=== PATIENT | male | born 2000 | race Two or more races ===

== ENCOUNTER → 2024-07-14 | Outpatient (CLI) | payer OTHER ==
[~2024-07-14] VITALS: Ht 177.8 cm; Wt 72.6 kg
== END | disposition home or self-care (01) ==
LOC: Rad HDHVI 10:10
PROVIDERS: ATTEND Internal Medicine Cardiovascular Disease
DX: R55 Syncope and collapse (principal); R07.89 Other chest pain; R00.1 Bradycardia, unspecified; I10 Essential (primary) hypertension; R53.83 Other fatigue
CPT/HCPCS: 93017; 93306

== ENCOUNTER → 2024-08-16 | Outpatient (CLI) | payer OTHER ==
[~2024-08-16] MED LIST: POM PO
[2024-08-16 13:07] VITALS: BP 129/72; PULSE 78; RESP 16; O2SAT 98
--- NOTE | 2024-08-16 13:29 | DVH ---
Procedure: XY CHEST TWO VIEWS ROUTINE 08/16/2024 02:55 PM Indication: PRE OP Comparison: None TECHNIQUE: XY CHEST TWO VIEWS ROUTINE FINDINGS: Medical devices: None. Cardiomediastinal: The heart is normal in size. Pulmonary vasculature is within normal limits. Lungs: No focal pulmonary opacity is seen. The costophrenic angles are clear. No pneumothorax. Bones/soft tissues: No acute abnormality is noted. IMPRESSION: 1. No acute cardiopulmonary disease.
== END | disposition home or self-care (01) ==
LOC: Rad HDHVI 13:02
PROVIDERS: ATTEND Internal Medicine Cardiovascular Disease
DX: Z01.818 Encounter for other preprocedural examination (principal)
CPT/HCPCS: 71046; G0463

== ENCOUNTER 2024-08-18 06:32 | Inpatient (IN) | payer OTHER ==
[~2024-08-18] VITALS: Ht 177.8 cm; Wt 72.0 kg
[2024-08-18] VITALS (8 sets, daily range): BP systolic 105–141; BP diastolic 58–72; PULSE 45–71; RESP 15–18; TEMP 97.6–99; O2SAT 96–99
[2024-08-18] MEDS: LORazepam 0.5 MG TAB PO ONE ×2 (08:03→09:15)
[2024-08-18] MEDS: LORazepam 0.5 MG TAB ONE (09:16)
[2024-08-18 09:48] LABS: Basophils # (auto) 0.1 10 ^3/uL (0-0.2); Basophils % (auto) 0.7 % (0.0-2.0); Eosinophils # (auto) 0.1 10 ^3/uL (0-0.8); Eosinophils % (auto) 1.3 % (0.0-7.0); Hematocrit 46.9 % (41.0-53.0); Hemoglobin 16.2 g/dL (13.5-17.5); Lymphocytes # (auto) 2.2 10 ^3/uL (0.4-5.4); Lymphocytes % (auto) 28.3 % (10.0-50.0); Mean Corpuscular Hemoglobin 29.2 pg (28.0-32.0); Mean Corpuscular Hgb Conc. 34.6 g/dL (32.0-36.0); Mean Corpuscular Volume 84.4 fL (80.0-100.0); Monocytes # (auto) 0.7 10 ^3/uL (0-1.3); Monocytes % (auto) 8.9 % (0.0-12.0); Neutrophils # (auto) 4.7 10 ^3/uL (1.6-8.6); Neutrophils % (auto) 60.8 % (37.0-80.0); Nucleated Red Blood Cells % 0.3 %; Platelet Count (auto) 330 10^3/uL (140-450); Red Blood Cells 5.56 10^6/uL (4.5-5.90); Red Cell Distribution Width 12.6 % (11.8-14.3); White Blood Cell 7.7 10^3/uL (4.4-10.8)
[2024-08-18 09:56] LABS: Chloride 103 mmol/L (98-107); Potassium 3.8 mmol/L (3.5-5.1); Sodium 139 mmol/L (136-145)
[2024-08-18 09:57] LABS: Anion Gap 7 (5-15); Carbon Dioxide 29 mmol/L (20-31)
[2024-08-18 10:02] LABS: BUN/Creatinine Ratio 10.6 (10.0-20.0); Blood Urea Nitrogen 11 mg/dL (9-23); Glucose 97 mg/dL (74-106)
[2024-08-18 10:06] LABS: Calcium 10.6 mg/dL (8.7-10.4)
[2024-08-18 10:22] LABS: INR 1.09 (0.9-1.15); Partial Thromboplastin Time 28.3 SEC (24.5-34.5); Prothrombin Time 11.5 sec (9.3-11.8)
[2024-08-18] MEDS ORDERED: MORPHINE SULFATE INJ 2 MG/ml SYRG IV PRN (12:00)
[2024-08-18] MEDS ORDERED: NITROGLYCERIN 0.4 MG SL TAB SL PRN (12:00)
--- NOTE | 2024-08-18 14:42 | DVHHP2 ---
Review of Systems Allergies: Coded Allergies: NO KNOWN ALLERGIES (Unverified , 08/16/24) Medications Current Medications Medications Dose Ordered Sig/Mikayla Route Start Time Stop Time Status Last Admin Dose Admin Nitroglycerin 0.4 mg Q5MINP PRN SL 08/18/24 12:00 Morphine Sulfate 2 mg Q30M PRN IV 08/18/24 12:00 Sodium Chloride 10 ml Q8HR IV 08/18/24 14:00 Labs/Xrays Labs Test 08/18/24 09:35 Range/Units White Blood Count 7.7 4.4-10.8 10^3/uL Red Blood Count 5.56 4.5-5.90 10^6/uL Hemoglobin 16.2 13.5-17.5 g/dL Hematocrit 46.9 41.0-53.0 % Mean Corpuscular Volume 84.4 80.0-100.0 fL Mean Corpuscular Hemoglobin 29.2 28.0-32.0 pg Mean Corpuscular Hemoglobin Concent 34.6 32.0-36.0 g/dL Red Cell Distribution Width 12.6 11.8-14.3 % Platelet Count 330 140-450 10^3/uL Mean Platelet Volume 7.0 6.9-10.8 fL Neutrophils (%) (Auto) 60.8 37.0-80.0 % Lymphocytes (%) (Auto) 28.3 10.0-50.0 % Monocytes (%) (Auto) 8.9 0.0-12.0 % Eosinophils (%) (Auto) 1.3 0.0-7.0 % Basophils (%) (Auto) 0.7 0.0-2.0 % Neutrophils # (Auto) 4.7 1.6-8.6 10 ^3/uL Lymphocytes # (Auto) 2.2 0.4-5.4 10 ^3/uL Monocytes # (Auto) 0.7 0-1.3 10 ^3/uL Eosinophils # (Auto) 0.1 0-0.8 10 ^3/uL Basophils # (Auto) 0.1 0-0.2 10 ^3/uL Nucleated Red Blood Cells 0.3 % Prothrombin Time 11.5 9.3-11.8 sec Prothrombin Time INR 1.09 0.9-1.15 Activated Partial Thromboplast Time 28.3 24.5-34.5 SEC Sodium Level 139 136-145 mmol/L Potassium Level 3.8 3.5-5.1 mmol/L Chloride Level 103 98-107 mmol/L Carbon Dioxide Level 29 20-31 mmol/L Anion Gap 7 5-15 Blood Urea Nitrogen 11 9-23 mg/dL Creatinine 1.04 0.700-1.30 mg/dL Glomerular Filtration Rate Calc 103 >90 mL/min BUN/Creatinine Ratio 10.6 10.0-20.0 Serum Glucose 97 74-106 mg/dL Calcium Level 10.6 H 8.7-10.4 mg/dL Assessment/Plan Assessment/Plan see dictated note Plan discussed with: Patient Date of Service: Aug 18, 2024 Billing Provider: RIANA ROMERO MD Common Visit Codes: [id number] INP/OBS CARE (HIGH) Secondary Visit Codes: [id number] CARE PLAN 30 MINUTES RIANA ROMERO MD Aug 18, 2024 14:42
--- NOTE | 2024-08-18 15:12 | DVHHP ---
HISTORY OF PRESENT ILLNESS: The patient is a 23-year-old gentleman who was admitted because of bradycardia and episodes of syncope. The patient denies any chest pain, no shortness of breath. No nausea or vomiting. REVIEW OF SYSTEMS: Review of rest of systems are otherwise currently negative. PAST MEDICAL HISTORY: No significant illness in the past. MEDICATIONS: He takes no medicine on a regular basis. ALLERGIES: No known drug allergies. SOCIAL HISTORY: Chews tobacco. Denies alcohol intake. FAMILY HISTORY: Negative. PHYSICAL EXAMINATION: GENERAL: The patient is awake, alert. VITAL SIGNS: Temperature of 98.6, pulse 58 per minute. SHEENT: Unremarkable. NECK: There is no JVD, no pedal edema. LUNGS: Equal bilaterally. No added sounds. CARDIOVASCULAR: S1, S2 is regular. There is bradycardia. ABDOMEN: Soft. There is no organomegaly. NEUROLOGIC: Nonfocal. MUSCULOSKELETAL: Normal. ASSESSMENT AND PLAN: * Bradyarrhythmia with a questionable sick sinus. The patient is to undergo dual chamber pacemaker placement by Dr. Klein in a.m. * Nicotine abuse. Advance care planning, the patient is a full code. Time spent was 19 minutes. MD MARC Schwartz/NORA TID: [id number] RECEIPT: [id number]
[2024-08-18] MEDS: SODIUM CHLOR 0.9% PF (SALINE LOCK) 10ML VIAL/SYR IV SCH (16:02)
[2024-08-19] VITALS (11 sets, daily range): BP systolic 88–117; BP diastolic 57–77; PULSE 44–77; RESP 11–20; TEMP 97–99.3; O2SAT 90–100
[2024-08-19] MEDS: VANCOMYCIN HCL 1000 MG VL ONE (08:25)
[2024-08-19] MEDS: fentaNYL CITRATE 100 MCG/2 ML VL ONE (08:25)
[2024-08-19] MEDS: MIDAZOLAM HCL 2MG/2ML 2ml VIAL (1mg/ml) ONE ×2 (08:25→08:52)
[2024-08-19] MEDS: VANCOMYCIN 1GM/250ML KIT 250 ML IV ONE (08:26)
[2024-08-19] MEDS: LIDOCAINE 2%HCL (LOCAL ANESTH.) INJ 20ML MDV ONE (08:26)
[2024-08-19] MEDS: HYDROmorphone HCL 2 MG/ML VL/or syr ONE (08:45)
[2024-08-19] MEDS: IODIXANOL 320MG/ML 100ML BTL IV ONE (08:46)
[2024-08-19] MEDS ORDERED: ceFAZolin 1GM/50ML 50 ML IV SCH (10:00)
--- NOTE | 2024-08-19 10:36 | DVH ---
EXAM: XY CHEST PORTABLE Indication: S/P PACEMAKER Technique: Single frontal view of the chest was obtained Comparison: None FINDINGS: Lines and Tubes: Cardiac pacemaker projects over left chest wall. Lungs: No focal consolidation. Pleura: No effusion. No pneumothorax. Cardiomediastinal contours: Unremarkable Bones: No acute osseous abnormality. IMPRESSION: No acute cardiopulmonary disease.
--- NOTE | 2024-08-19 14:13 | DVHDS2 ---
Discharge Summary Date of Admission Aug 18, 2024 at 12:00 Date of Discharge: Aug 19, 2024 Admitting Diagnosis SINUS ARREST Wounds: PPI SITE Labs/Diagnostic Data: Laboratory Results Test 08/18/24 09:35 White Blood Count 7.7 10^3/uL (4.4-10.8) Red Blood Count 5.56 10^6/uL (4.5-5.90) Hemoglobin 16.2 g/dL (13.5-17.5) Hematocrit 46.9 % (41.0-53.0) Mean Corpuscular Volume 84.4 fL (80.0-100.0) Mean Corpuscular Hemoglobin 29.2 pg (28.0-32.0) Mean Corpuscular Hemoglobin Concent 34.6 g/dL (32.0-36.0) Red Cell Distribution Width 12.6 % (11.8-14.3) Platelet Count 330 10^3/uL (140-450) Mean Platelet Volume 7.0 fL (6.9-10.8) Neutrophils (%) (Auto) 60.8 % (37.0-80.0) Lymphocytes (%) (Auto) 28.3 % (10.0-50.0) Monocytes (%) (Auto) 8.9 % (0.0-12.0) Eosinophils (%) (Auto) 1.3 % (0.0-7.0) Basophils (%) (Auto) 0.7 % (0.0-2.0) Neutrophils # (Auto) 4.7 10 ^3/uL (1.6-8.6) Lymphocytes # (Auto) 2.2 10 ^3/uL (0.4-5.4) Monocytes # (Auto) 0.7 10 ^3/uL (0-1.3) Eosinophils # (Auto) 0.1 10 ^3/uL (0-0.8) Basophils # (Auto) 0.1 10 ^3/uL (0-0.2) Nucleated Red Blood Cells 0.3 % Prothrombin Time 11.5 sec (9.3-11.8) Prothrombin Time INR 1.09 (0.9-1.15) Activated Partial Thromboplast Time 28.3 SEC (24.5-34.5) Sodium Level 139 mmol/L (136-145) Potassium Level 3.8 mmol/L (3.5-5.1) Chloride Level 103 mmol/L (98-107) Carbon Dioxide Level 29 mmol/L (20-31) Anion Gap 7 (5-15) Blood Urea Nitrogen 11 mg/dL (9-23) Creatinine 1.04 mg/dL (0.700-1.30) Glomerular Filtration Rate Calc 103 mL/min (>90) BUN/Creatinine Ratio 10.6 (10.0-20.0) Serum Glucose 97 mg/dL (74-106) Calcium Level 10.6 mg/dL (8.7-10.4) Other Laboratory Tests 08/18/24 09:35 Brief Hx & Hospital Course: PT HAD SINUS ARREST 11 SEC PAUSES WITH SYNCOPE PPI DELAYED BECAUSE OF WICKER MOLDED CANDLES ISSUES S/P PPI DUAL THIS MORNING NO COMPLICATIONS MAY DC HOME Operations or Procedures PPI IMPLANTATION Condition at Discharge: Good Final Diagnosis/Problems List SINUS NODE ARREST Discharge Disposition: Home Discharge Instruct/Medications Diet: Regular Activity: Light activity Follow Up/Referral: 1 WEEK Medications: KEPLEX 500 PO QID X7 DAYS Discharge Statement: "Patient was advised to return to the ER or call 911 if any headaches, dizziness, shortness of breath, chest pain, abdominal pain, bleeding, fevers, or worsening of medical condition. Patient was counseled about treatment plan, medications, possible side effects, patientverbalized understanding. All questions were answered to the best of my ability. This discharge took greater then 30 minutes in planning, reviewing documentation, counseling the patient, and discussing with other team members." ASSESSMENT ASSESSMENT Assessment SINUS NODE ARREST DEBORAH YOUNG MD Aug 19, 2024 14:12
--- NOTE | 2024-08-19 14:16 | DVHPN2 ---
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 [employer] K9 UNIT vital signs Vital Sign Date Time Temp Pulse Resp B/P (MAP) Pulse Ox O2 Delivery O2 Flow Rate FiO2 08/19/24 13:00 99.3 69 20 111/64 (80) 99 99.3 08/19/24 08:00 Room Air* 0 21 Total Intake and Output 08/18/24 08/18/24 08/19/24 15:00 23:00 07:00 Intake Total 200 ml 600 ml Balance 200 ml 600 ml medications Current Medications Medications Dose Ordered Sig/Mikayla Route Start Time Stop Time Status Last Admin Dose Admin Nitroglycerin 0.4 mg Q5MINP PRN SL 08/18/24 12:00 Morphine Sulfate 2 mg Q30M PRN IV 08/18/24 12:00 Sodium Chloride 10 ml Q8HR IV 08/18/24 14:00 08/19/24 05:20 10 ML Cefazolin Sodium 50 ml @ 50 mls/hr Q8H IV 08/19/24 12:00 08/20/24 04:59 objective NON FOCAL EXAMINATION laboratory and microbiology Laboratory Tests 08/18/24 09:35 Test 08/18/24 09:35 Range/Units Serum Glucose 97 74-106 mg/dL Problem List SINUS ARREST SYNCOPE Assessment/Plan 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
[2024-08-19 14:51] LABS: Alanine Aminotransferase 15 U/L (7-40); Albumin 4.6 g/dL (3.2-4.8); Alkaline Phosphatase 69 U/L (46-116); Anion Gap 9 (5-15); Aspartate Aminotransferase 14 U/L (13-40); BUN/Creatinine Ratio 9.8 (10.0-20.0); Blood Urea Nitrogen 9 mg/dL (9-23); Calcium 10.3 mg/dL (8.7-10.4); Carbon Dioxide 26 mmol/L (20-31); Chloride 101 mmol/L (98-107); Potassium 3.9 mmol/L (3.5-5.1); Sodium 136 mmol/L (136-145); Total Protein 7.5 g/dL (5.7-8.2)
[2024-08-19 14:54] LABS: Bilirubin, Total 1.6 mg/dL (0.2-1.0); Glucose 107 mg/dL (74-106)
--- NOTE | 2024-08-19 15:59 | DVHOP ---
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 He has been documented on tele. Now, the patient is to undergo dual chamber permanent pacemaker implantation. PROCEDURES PERFORMED: 1. Dual-chamber permanent pacemaker. 2. Venography. 3. Conscious sedation. DESCRIPTION OF PROCEDURE: The patient was prepped and draped in a sterile condition. A 1% Xylocaine used to anesthetize the left subclavicular region. Using a Cook needle, the left subclavian vein was engaged via Seldinger technique, a guidewire was then appropriately positioned. Using a 10 blade, linear incision was made using blunt dissection, electrocautery, pocket was then dissected out. Using a 9-Guamanian peel-away sheath, right ventricular active fixation lead then appropriately positioned. Then, using a 7-[place] peel-away sheath, right atrial active fixation lead then appropriately positioned. Threshold parameters obtained, lead was secured to the chest wall using 0 Ethibond. Generator was implanted. Pocket was then irrigated using vancomycin saline solution. D-Stat was given because the patient had diffuse oozing. Following that, the pocket was closed using 3-0 Monoderm subcutaneous sutures followed by 3-0 Monoderm subcuticular sutures. There were no complications. The patient tolerated the procedure well. RESULTS: The patient has Biotronik MRI compatible dual-chamber permanent pacemaker, Edora 8 DR-T, model #[id number], serial #[id number]. RV lead is Solia S53, model #[id number], serial #[id number]. Atrial lead is Solia S45, model #[id number], serial #[id number]. Threshold parameters atrium, P-wave amplitude of 5.7 millivolts, threshold of 1.0 volts at 0.4 milliseconds pulse duration, pacing impedance of 895 ohms. Right ventricular lead, R-wave amplitude of 12.2 millivolts, threshold of 0.4 volts at 0.4 milliseconds pulse duration, pacing impedance 680 ohms. CONCLUSION: The patient has successful implantation of dual chamber permanent pacemaker, MRI compatible system. The right ventricular lead was placed in the high to mid septum and the left bundle branch morphology. Ernie Zaldivar MD SA/ELIO TID: [id number] RECEIPT: [id number]
[2024-08-19] MEDS: ceFAZolin 1GM/50ML 50 ML IV SCH (17:30)
[2024-08-19] MEDS ORDERED: VANCOMYCIN 1GM/250ML KIT 200 ML IV ONE (21:00)
== END 2024-08-19 18:24 | disposition home or self-care (01) | DRG 244 ==
LOC: CATH 06:32 → TELE 12:00 → TELE-WESTW 14:31
PROVIDERS: ADMIT Internal Medicine Cardiovascular Disease; ATTEND Internal Medicine Cardiovascular Disease
PROC: 0JH606Z Insertion of Pacemaker, Dual Chamber into Chest Subcutaneous Tissue and Fascia, Open Approach (ICD-10-PCS; principal; 2024-08-19)
PROC: 02H63JZ Insertion of Pacemaker Lead into Right Atrium, Percutaneous Approach (ICD-10-PCS; 2024-08-19)
PROC: 02HK3JZ Insertion of Pacemaker Lead into Right Ventricle, Percutaneous Approach (ICD-10-PCS; 2024-08-19)
DX: I49.5 Sick sinus syndrome (principal); I45.5 Other specified heart block; Z72.0 Tobacco use
CPT/HCPCS: 33208; 36415; 71045; 80048; 80053; 84443; 85025; 85610; 85730; 99152; G0378; J2250; Q9967